=== PATIENT | female | born 1970 | race Two or more races ===

== ENCOUNTER 2018-09-09 03:42 | Emergency (ER) | payer MEDICAID ==
[~2018-09-09] VITALS: Ht 157.5 cm; Wt 78.0 kg
[2018-09-09] MEDS ORDERED: ALBU8.5H8 IH (03:51)
--- NOTE | 2018-09-09 04:05 | NUR ---
Dr. Shields at bedside for MSE.
--- NOTE | 2018-09-09 04:07 | NUR ---
Patient provided urine, sent to lab.
--- NOTE | 2018-09-09 04:30 | NUR ---
Pt out of ER for CT.
[2018-09-09 04:33] LABS: *BILIRUBIN,URIN NEGATIVE (NEGATIVE); *COLOR,URINE YELLOW (YELLOW); *KETONES,URINE NEGATIVE (NEGATIVE); *UROBILINOGEN,URINE 0.2 E.U./dl (NORMAL); LEUKOCYTE ESTERASE ,URINE TRACE (NEGATIVE); NITRITE, URINE NEGATIVE (NEGATIVE); UGLUCOSE NEGATIVE (NEGATIVE)
[2018-09-09 04:33] LABS: BASOPHILS % (AUTO) 0.5 % (0.0-2.0); EOSINOPHILS # (AUTO) 0.5 K/uL (0.0-0.7); EOSINOPHILS % (AUTO) 9.1 % (0.0-7.0); HEMATOCRIT 40.3 % (31.2-41.9); HEMOGLOBIN 13.7 g/dL (10.9-14.3); LYMPHOCYTES # (AUTO) 2.4 K/uL (20.0-40.0); LYMPHOCYTES % (AUTO) 44.9 % (20.5-51.5); MEAN CORPUSCULAR HEMOGLOBIN 28.7 uug (24.7-32.8); MEAN CORPUSCULAR HGB CONC 34 g/dL (32.3-35.6); MONOCYTES # (AUTO) 0.3 K/uL (2.0-10.0); MONOCYTES % (AUTO) 6.2 % (0.0-11.0); NEUTROPHILS # (AUTO) 2.1 K/uL (1.8-8.9); NEUTROPHILS % (AUTO) 39.3 % (38.5-71.5); PLATELET COUNT (AUTO) 305 K/uL (179-408); WHITE BLOOD COUNT (AUTO) 5.4 K/uL (3.8-11.8)
[2018-09-09 04:35] LABS: *BLOOD, URINE TRACE (NEGATIVE); *CLARITY,URINE HAZY (CLEAR)
[2018-09-09 04:39] LABS: BACTERIA,URINE MANY /HPF (NONE SEEN)
[2018-09-09 04:40] LABS: SQUAMOUS EPITHELIAL CELL,UR MANY /HPF (NONE SEEN)
[2018-09-09 04:40] LABS: CREATININE 0.7 mg/dL (0.6-1.3); POTASSIUM 3.9 mmol/L (3.5-5.1)
[2018-09-09 04:46] LABS: BILIRUBIN,DIRECT 0.1 mg/dL (0.0-0.2); BILIRUBIN,TOTAL 0.3 mg/dL (0.2-1.0); TOTAL PROTEIN, SERUM 7.3 g/dL (6.4-8.2)
--- NOTE | 2018-09-09 04:46 | NUR ---
Pt back to ER from CT.
--- NOTE | 2018-09-09 04:58 | NUR ---
Ultrasound at bedside.
[2018-09-09] MEDS ORDERED: NITROFURANTOIN/NITROFURAN MAC 100 MG CAPSULE PO ONE (05:00)
[2018-09-09] MEDS ORDERED: CEphaleXIN 500 MG CAPSULE PO ONE (05:00)
[2018-09-09] MEDS ORDERED: NITROFURANTOIN/NITROFURAN MAC 100 MG CAPSULE ONE (05:03)
[2018-09-09] MEDS ORDERED: CEphaleXIN 500 MG CAPSULE ONE (05:03)
--- NOTE | 2018-09-09 05:40 | NUR ---
Patient discharged to home in stable conditon. Written and verbal after care instructions given. Patient verbalizes understanding of instructions. Pt ambulated out of ER with steady gait, no acute signs of distress, VSS, all belongings taken.
[2018-09-09 05:42] VITALS: BP 113/66
== END 2018-09-09 05:43 | disposition home or self-care (01) ==
LOC: ER 04:06
DX: K80.20 Calculus of gallbladder without cholecystitis without obstruction (principal); N20.0 Calculus of kidney; N39.0 Urinary tract infection, site not specified; J45.909 Unspecified asthma, uncomplicated; Z79.899 Other long term (current) drug therapy
CPT/HCPCS: 36415; 71250; 83690; 85025; 87086; A4663